=== PATIENT | male | born 1980 | race Caucasian/White ===

== ENCOUNTER 2018-02-24 01:23 | Emergency (ER) | payer MEDICAID ==
[~2018-02-24] VITALS: Ht 177.8 cm; Wt 100.0 kg
[2018-02-24] MEDS ORDERED: KETOROLAC 30MG/ML VIAL IV ONE (02:00)
[2018-02-24 04:23] VITALS: BP 154/77
== END 2018-02-24 04:36 | disposition home or self-care (01) ==
LOC: ER 01:23
DX: R07.89 Other chest pain (principal); V89.2XXA Person injured in unspecified motor-vehicle accident, traffic, initial encounter; Y93.89 Activity, other specified; Y92.89 Other specified places as the place of occurrence of the external cause; Y99.8 Other external cause status
CPT/HCPCS: 71046; 96374; 99284; J1885; Z7610